=== PATIENT | female | born 1950 | race Caucasian/White ===

== ENCOUNTER 2019-12-05 06:10 | Day surgery (SDC) | payer OTHER ==
[~2019-12-05 06:10] MED LIST: ARIMIDEX PO; ATACAND16 MG PO; VERELAN240 MG PO; XALATAN OPHT
== END 2019-12-05 18:30 | disposition home or self-care (01) ==
LOC: CIR.AMB 06:10
PROVIDERS: ATTEND Surgery
DX: D05.12 Intraductal carcinoma in situ of left breast (principal); C77.3 Secondary and unspecified malignant neoplasm of axilla and upper limb lymph nodes

== ENCOUNTER 2022-09-09 00:59 | Emergency (ER) | payer OTHER ==
[~2022-09-09] VITALS: Ht 162.6 cm; Wt 73.9 kg
[2022-09-09] MEDS ORDERED: ANASTROZOLE1 MG (01:09)
[2022-09-09] MEDS ORDERED: CRESTOR5 MG PO (01:09)
== END 2022-09-09 02:08 | disposition home or self-care (01) ==
LOC: ER 00:59
DX: R00.2 Palpitations (principal); Z88.0 Allergy status to penicillin; Z91.013 Allergy to seafood; Z88.2 Allergy status to sulfonamides; F41.8 Other specified anxiety disorders; Z88.6 Allergy status to analgesic agent; M79.7 Fibromyalgia

== ENCOUNTER 2024-12-04 08:33 | Outpatient (CLI) | payer OTHER ==
[~2024-12-04 08:33] MED LIST changes: +ANASTROZOLE1 MG; +CRESTOR5 MG PO
== END 2024-12-04 08:35 | disposition home or self-care (01) ==
LOC: SONOGRAMA 08:33
PROVIDERS: ATTEND Pathology Anatomic Pathology
DX: D34 Benign neoplasm of thyroid gland (principal); E07.89 Other specified disorders of thyroid; E04.2 Nontoxic multinodular goiter